=== PATIENT | female | born 1940 | race Caucasian/White ===

== ENCOUNTER 2021-07-10 08:16 | Observation (INO) ==
--- NOTE | 2021-06-10 11:31 | PAT Medication Instructions ---
Medication Instructions Date of Service June 10, 2021 Home Medications acetaminophen 500 mg tablet 1,000 mg PO Q6H PRN amlodipine 10 mg tablet 10 mg PO QAM aspirin 81 mg tablet,delayed release 81 mg PO QAM atorvastatin 40 mg tablet 40 mg PO HS clonidine HCl 0.1 mg tablet 0.1 mg PO BID dulaglutide 0.75 mg/0.5 mL subcutaneous pen injector (Trulicity) 0.75 mg SUBCUT WK hydrochlorothiazide 25 mg tablet 25 mg PO QAM losartan 100 mg tablet 100 mg PO QAM metformin 500 mg tablet 500 mg PO BID Continue as directed dulaglutide 0.75 mg/0.5 mL subcutaneous pen injector (Trulicity) 0.75 mg SUBCUT WK (do not use morning of surgery) DO NOT take the morning of surgery hydrochlorothiazide 25 mg tablet 25 mg PO QAM losartan 100 mg tablet 100 mg PO QAM metformin 500 mg tablet 500 mg PO BID Take morning of surgery With a small sip of water, OTHERWISE NOTHING TO EAT OR DRINK AFTER MIDNIGHT: acetaminophen 500 mg tablet 1,000 mg PO Q6H PRN(okay to take up to 4 hours prior to surgery if needed) amlodipine 10 mg tablet 10 mg PO QAM aspirin 81 mg tablet,delayed release 81 mg PO QAM (unless directed otherwise by surgeon) clonidine HCl 0.1 mg tablet 0.1 mg PO BID Take evening before surgery acetaminophen 500 mg tablet 1,000 mg PO Q6H PRN(if needed) atorvastatin 40 mg tablet 40 mg PO HS clonidine HCl 0.1 mg tablet 0.1 mg PO BID metformin 500 mg tablet 500 mg PO BID Other Notes If you have any questions please call us at [phone] or [phone] or [phone] or [phone]
--- NOTE | 2021-06-11 09:43 | Anesthesiology Consultation ---
Date of Service June 11, 2021 Assessment & Plan (1) Encounter for pre-operative examination: Chart Review Chart Review: Acceptable Risk for Surgery (pending preop Covid testing results ) and Patient seen in Pre Admission Testing -Discussed case with Dr. Moreno- due to age- patient is NOT a Same Day Joint candidate. Surgeon's office informed - Check BSG AM DOS Per PAT appt on 06/11/21, patient denies any recent travel or large group activities. No known Covid positive exposures or Covid related symptoms. No known Covid infection in the past 90 days. Pt is vaccinated for Covid. Preop Covid testing scheduled 07/03/21= will await results. Educated on importance of self quarantining, social distancing and wearing mask in public for the patient one week prior to surgery and after Covid testing done Teaching & Discussion Pre-Anesthesia Teaching/Discussion Notes: Instructed NPO after midnight before surgery,except medications with 15 cc of water. Medication instructions provided according to the PAT guidelines. History Surgery Operation Date: 07/07/21 11:00 Proposed Procedures p Right Total Hip Replacement - Anupam Cabral MD Height/Weight Height: 5 ft 7 in Weight: 67.1 kg Allergies Allergy/AdvReac Type Severity Reaction Status Date / Time No Known Allergies Allergy Verified 06/09/21 14:16 Medications Home Medications Medication Instructions Recorded Confirmed Last Taken acetaminophen 500 mg tablet 1,000 mg PO Q6H PRN 06/09/21 06/09/21 Unknown amlodipine 10 mg tablet 10 mg PO QAM 06/09/21 06/09/21 Unknown aspirin 81 mg tablet,delayed 81 mg PO QAM 06/09/21 06/09/21 Unknown release atorvastatin 40 mg tablet 40 mg PO HS 06/09/21 06/09/21 Unknown clonidine HCl 0.1 mg tablet 0.1 mg PO BID 06/09/21 06/09/21 Unknown dulaglutide 0.75 mg/0.5 mL 0.75 mg SUBCUT WK 06/09/21 06/09/21 Unknown subcutaneous pen injector (Trulicity) hydrochlorothiazide 25 mg tablet 25 mg PO QAM 06/09/21 06/09/21 Unknown losartan 100 mg tablet 100 mg PO QAM 06/09/21 06/09/21 Unknown metformin 500 mg tablet 500 mg PO BID 06/09/21 06/09/21 Unknown Past Medical History Medical History CKD (chronic kidney disease) Diabetes Glucose well controlled per patient Elevated cholesterol Hypertension Liver disease HX HEPATITIS 50-60 YRS AGO No current liver issues per patient Lumbar spondylosis Exercise / Class Metabolic Activity II 4-5 Yardwork/Stairs/Walk up hill (one flight of stairs- no chest pain or SOB ) Past Family History Family History Mother Diabetes Other Breast cancer Coronary heart disease Past Surgical History Surgical History H/O breast surgery H/O eye surgery H/O knee surgery H/O repair of rotator cuff H/O: hysterectomy History of appendectomy Past Anesthesia History No Hx of Anesthesia Complications and No Family Hx of Anesthesia Complications History of PONV No Hx of PONV and No Hx of Motion Sickness Social History Smoking Status: Never smoker Do You Dip or Chew Tobacco: No Hx Alcohol Use: No Hx Substance Use: No Review of Systems Patient denies chest pain, shortness of breath, dyspnea on exertion, reflux, cough, wheezing, palpitations. No hx of seizures, stroke, [place], apnea/snoring. No hx of blood clots or blood transfusions Physical Exam Vital Signs VITALS BP 147/84 P 65 TEMP 98.1 SP02 97% RESP 16 Constitutional no acute distress ENMT Mouth: no TMJ clicking Thyromental Distance: > or= 3.5 Finger Breadths (3.5) Mallampati Class: III Bottom left side permanent bridge Neck neck extension not limited Respiratory normal respiratory effort; no respiratory distress Auscultation: lungs clear to auscultation bilaterally; no wheezes Cardiovascular Rate/Rhythm: regular rate and regular rhythm Heart Sounds: no murmur Vessels: no carotid bruit Musculoskeletal Spine: no pain with cervical ROM Extremities: extremities normal to inspection Psychiatric Orientation: alert Lab Results Anesthesia Preop Results Results Anesthesia Widget: WBC 8.47 K/uL (4.8-10.8) 06/11/21 Hgb 13.8 g/dL (12.0-16.0) 06/11/21 Hct 42.0 % (37-47) 06/11/21 Plt 312 K/uL (130-400) 06/11/21 Na 139 mmol/L (136-145) 06/11/21 K 3.4 mmol/L (3.5-5.1) L 06/11/21 Cl 103 mmol/L (98-107) 06/11/21 CO2 28 mmol/L (21-32) 06/11/21 BUN 27 mg/dl (6-23) H 06/11/21 Creat 0.94 mg/dl (0.6-1.2) 06/11/21 Glucose Level 140 mg/dl (70-99(Fasting)) H 06/11/21 PT 10.1 Seconds (9.0-12.0) 06/11/21 PTT 25.2 Seconds (21.0-31.0) 06/11/21 INR 1.0 (0.9-1.1) 06/11/21 HA1c 6.8 % (4.5-5.6) H 06/11/21 Blood Type A Positive 06/11/21 Antibody Screen NEGATIVE 06/11/21 Testing Electrocardiogram Date: 06/11/21 Findings: + NSR @ (61bpm) Left anterior fascicular block. RBBB. When compared to EKG from December 07, 2013- no significant change was found per cardio. (Discussed with Dr. Bustamante- per cardio- no change since 2013- patient can proceed as scheduled) Chest X-Ray Date: 06/11/21 Findings: + NAD
--- NOTE | 2021-07-04 12:34 | History and Physical Report ---
DATE OF ADMISSION: 07/10/2021. CHIEF COMPLAINT: Right hip and knee pain. HISTORY OF PRESENT ILLNESS: The patient is an 80-year-old very healthy, active female who has become disabled by her right hip and leg pain. She has a several-year history of increasing right leg and hip pain and discomfort that has gotten markedly worse over the past year. She describes mostly groi n pain radiating down to her knee. We put shots in both her knee and her hip area, which have not he lped much. She is having more and more trouble getting around living an independent lifestyle. She would like to have this fixed. PAST MEDICAL HISTORY: Significant for: 1. Diabetes x15 years, well controlled with an A1c of 6.8. 2. Arthritis. 3. Elevated cholesterol. 4. Hypertension. 5. Unspecified liver disease. 6. Lumbar spondylosis. PAST SURGICAL HISTORY: Includes: 1. Breast surgery. 2. Eye surgery. 3. Knee surgery. 4. Rotator cuff repair. 5. Hysterectomy. ALLERGIES: None. CURRENT MEDICATIONS: 1. Topical diclofenac. 2. Tylenol. 3. Amlodipine 10 mg a day. 4. Baby aspirin once a day. 5. Atorvastatin 40 mg a day. 6. Trulicity. 7. Clonidine. 8. Hydrochlorothiazide. 9. Losartan. 10. Metformin. SOCIAL HISTORY: An 80-year-old female. She lives in [place]. She is . Does not smoke. FAMILY HISTORY: Noncontributory. REVIEW OF SYSTEMS: Significant for well-controlled diabetes. Denies any chest pain or shortness of breath. No history of DVT or PE. No known bleeding problems. PHYSICAL EXAMINATION: GENERAL: Shows a pleasant, frail, energetic appearing elderly female. HEENT: Benign. NECK: Supple. No lymphadenopathy. LUNGS: Clear to auscultation. HEART: Has a regular rate and rhythm. ABDOMEN: Soft, nontender, nondistended. EXTREMITIES: Grossly neurovascularly intact except as follows. Examination of the right hip and leg revealed the patient walks with a significantly antalgic gait. She limps on the right side. Leg lengths appeared clinically equal. She has pain and stiffness with any type of hip motion. Negative straight leg raise. Mild tenderness over the trochanteric bursa. She can internally rotate to about neutral at best. Examination of the right knee reveals a bony hypertrophy globally. A little bit of tibial femoral rao bluxation. Range of motion is 10-105 degrees. No instability. X-RAYS: X-rays of the right hip show advanced hip arthritis. She has got concentric loss of joint s pace. Lateral osteophyte formation. X-rays of the right knee, which show right knee tricompartment DJD. She has got disease in all 3 com partments. ASSESSMENT: An 80-year-old female with advanced right hip along with right knee degenerative joint d isease. It appears that the hip has been more disabling from a functional pain standpoint. She has failed conservative treatment. Unfortunately, she has got significant knee arthritis as well. PLAN: We talked about treatment options. She would like to proceed with right total hip replacement . Risks and benefits of this procedure were explained to the patient include but not limited to DVT, PE, , infection, neurological injury, vascular injury, bleeding problem, pain, limited range of motion, stiffness, failure to relieve her symptoms, incomplete relief of symptoms, need for further surgery in the future, fracture, leg length inequality, nerve palsy, etc. The patient understands an d desires to proceed. Informed consent was obtained. This is not going to necessarily address her knee pain, but it appears that her hips are the major co ntributing factor at this point. She certainly may need something done with her knee in the future. She knows to hold her metformin on the morning of surgery. She is planning to be discharged to home eventually, but planning on staying overnight and using [facility]. We will see h ow she gets around postop. She may need a rehab stay. Job ID: [id number]
[~2021-07-10 08:16] MED LIST: ACETAMINOPHEN 500 MG TAB PO SCH; BUPIVACAINE 0.5 % 5 MG/1 ML PF 10ML VIAL ONE; FAMOTIDINE 20 MG TAB PO SCH; GABAPENTIN 300 MG CAP PO SCH; LR 500ML BOLUS, THEN 15ML/HR IV SCH; LR 60ML/HR IV SCH; TRANEXAMIC ACID 1,000 MG **IV Pre-op IV SCH; ceFAZolin 2000MG 2,000 MG/15 ML SYR IV SCH
--- NOTE | 2021-07-10 09:19 | History & Physical Bridge Note ---
Date of Service July 10, 2021 History & Physical Bridge Note I have examined the patient, reviewed the History & Physical and in the interval since the performance of the History & Physical I have noted the following changes of clinical significance: no changes noted
[2021-07-10] MEDS ORDERED: LABETALOL HCL IV 5 MG/ML 20ML IV PRN (10:04)
[2021-07-10] MEDS ORDERED: ONDANSETRON INJ 2 MG/ML 2 ML VIAL IV PRN ×2 (10:04→15:27)
[2021-07-10] MEDS ORDERED: HYDROmorphone INJ 1 MG/ML SYRINGE IV PRN (10:04)
[2021-07-10] MEDS ORDERED: fentaNYL citrate 100 MCG/2 ML VIAL IV PRN (10:04)
[2021-07-10] MEDS ORDERED: PHENYLEPHRINE 100MCG/ML 5ML SYR IV PRN (10:04)
[2021-07-10] MEDS ORDERED: ATROPINE SULFATE 0.1 MG/ML 10ML SYR IV PRN (10:04)
[2021-07-10] MEDS ORDERED: ePHEDrine sulfate 50 MG/ML AMP IV PRN (10:04)
[2021-07-10] MEDS ORDERED: fentaNYL citrate 100 MCG/2 ML VIAL ONE (10:26)
[2021-07-10] MEDS ORDERED: MIDAZOLAM HCL 1 MG/ML 2ML VIAL ONE (10:26)
[2021-07-10] MEDS ORDERED: EPINEPHrine INJ 1 MG/ML AMP ONE (11:55)
[2021-07-10] MEDS ORDERED: BUPIVACAINE 0.5 % 5 MG/1 ML MPF 30ML VIAL ONE (11:55)
[2021-07-10] MEDS ORDERED: PROPOFOL IV EMULSION 10 MG/ML 20 ML VIAL IV ONE (13:12)
[2021-07-10] MEDS ORDERED: ePHEDrine sulfate 50 MG/ML AMP ONE (13:12)
--- NOTE | 2021-07-10 14:36 | Anesthesiology Progress Note ---
Date of Service July 10, 2021 Anesthesia Post Procedure Vital Signs Vital Signs: Temp Pulse Pulse Resp BP Pulse Ox 07/10/21 14:25 72 17 167/70 H 100 07/10/21 14:18 36 C L 73 22 153/76 H 98 07/10/21 08:51 36.6 C 63 20 146/70 H 97 Transfer of Care Handoff Completed per policy Notes Mental Status: alert / awake / arousable Patient Amnestic to Procedure: Yes Nausea / Vomiting: adequately controlled Pain: adequately controlled Airway Patency, RR, SpO2: stable & adequate BP & HR: stable & adequate Hydration State: stable & adequate Neuraxial Anesthesia: was administered and sensory block is resolving Anesthetic Complications: no major complications apparent and Pt Satisfied with anesthetic care Notes: The patient is awake and comfortable. She is moving her legs.
--- NOTE | 2021-07-10 14:42 | Operative Report ---
PG Post Operative Report Pre & Post Diagnosis Operation Date: 07/10/21 10:40 Pre-Op Diagnosis: Right Hip Advanced Degenerative Joint Disease Post-Op Diagnosis: Right Hip Advanced Degenerative Joint Disease I identified the patient and participated in the time-out.: Yes Procedure Operation Date: 07/10/21 10:40 Actual Procedures p Right Total Hip Arthroplasty--Uncemented(Right) - Anupam Cabral MD Surgeon Anupam Cabral MD Information Assurance Analyst Lj Grewal PA-C Estimated Blood Loss 200 Findings Consistent with Post-Op Diagnosis Operative findings were advanced right hip DJD. She did have some grade 4 changes of the femoral head there is a very sclerotic acetabulum. Very strong bone density for age. Small hip joint effusion. Fluids 1400 cc Specimens Right femoral head sent for pathology Anesthesia Type Spinal MAC Complications none Disposition Accompanied Patient To Recovery: No Indications Patient is an 80-year-old female who is a long history of multiple joint problems. Over the years she developed increasing arthritic changes particularly in the right knee and the right hip joint. She became more debilitated by her disease. She has difficulty living a independent lifestyle. She had both advanced hip as well as knee arthritis. We elect to proceed with hip arthroplasty first in hopes this may help her right knee pain as well. Was also felt the majority of her limiting symptoms were coming from her hip joint. Description of Procedure Operative implants consisted of: 1. Biomet G7 size 52 mm acetabular shell. 2. 6.5 cancellous acetabular screws 135 mm length 130 mm length. 3. Sebastian hole locomotive crane operator helper. 4. Highly cross-linked polyethylene liner with a 52 mm outer diameter, 36 mm inner diameter with a dangelo placed inferior and posterior. 5. DePuy Corail size 10 short neck 125 degree angle femoral stem. 6. +5/36 mm ceramic articular ball. The patient was taken the operating, identified, and placed on the operating table supine position protectors were properly padded. IV antibiotics tried by anesthesia team. A spinal anesthetic had been implemented holding area. We attempted to place a Lucas catheter but were unable to do so due to her a very small urethra. We elected to hold off on this and need placement postoperatively as needed. The patient was then placed in the left lateral decubitus position. An axillary roll was placed. A Stulberg hip positioner was used for positioning. The right hip and leg were then prepped and draped in usual sterile fashion. A posterior lateral approach to the right hip was then performed to a curvilinear incision centered over the greater trochanter. Sharp dissection carried through subcutaneous this down over the IT band gluteal fascia. The IT band gluteal fascia were incised longitudinally in line with skin incision. The underlying greater bursa was excised. The piriformis and external rotators were tagged and taken off the posterior aspect hip joint capsule. Great care was taken throughout the procedure to protect the sciatic nerve at all times. Posterior capsulotomy was then performed in the large flap for later repair. Hip was internally rotated and dislocated. Femoral neck osteotomy cut was made with Final Cut about 14 mm above the lesser trochanter. Femoral head was removed and sent for pathology. The femur was retracted anteriorly. Attention drawn the acetabulum. The acetabular labrum was excised. The pulvinar fat was excised. Sequential reaming the acetabular was then performed beginning with size 43 and progressing up to 51. I did reamed a little bit with a 52 reamer and then placed a 52 mm cup in about 40 degrees lateral opening and 20 degrees of anteversion. It was fixed with two 6.5 cancellous acetabular screws. Trial liner was placed. Attention drawn the femur. The proximal femur was entered with a cookie-cutter followed by canal finder. Her cancellous bone density was excellent so we elected to go with an uncemented stem. I then broached beginning with size 8 and progressing up to a 10. We got good fit of the tendon. I then trialed the hip. The short neck seemed to fit most appropriate as far as leg lengths and soft tissue tension. The hip was fully stable in extension and external rotation flexion to 90 degrees internal rotation over 50 degrees. I did elect to place a dangelo inferior and posterior to maximize her stability. We elect to place these implants. All trial implants were removed. An apex hole locomotive crane operator helper was placed but highly cross-linked polyethylene liner with a dangelo placed inferior and posterior was impacted in position. A DePuy size 10 short neck 125 degree angle femoral stem was impacted in position. A +5/36 mm ceramic articular ball was placed. Hip was low again and once again found to be stable. Attention drawn toward closing. The wounds irrigated scope sounds a pulsatile lavage solution. I did inject locally with about 40 cc of half percent Marcaine with epinephrine. Posterior capsule and external rotators were then repaired through drill holes in the posterior trochanter with #2 Tycron suture. The IT band gluteal fascia then closed #1 PDS suture running fashion. The subcutaneous tissue then closed with 2 layers the deep layer #1 Vicryl suture and subcutaneous tissue with 2 Dexon suture in a buried interrupted fashion for skin was closed skin simon. Leg was then cleaned and dried a sterile dressing both Xeroform, 4 fours, sterile ABD pad, foam tape were applied. Patient then transferred to the recovery room in stable condition. Patient tolerated the procedure well and there were no complications. Damon Grewal, my physician assistant account executive, was present for the entire procedure. His assistance was required for proper patient positioning, prepping and draping, surgical exposure, retraction, placement of the implants, perform the technical details of the operation, closure of the wound, placement of sterile bandage. I attest to the content of the Intraoperative Record and any orders documented therein. Any exceptions are noted below.
--- NOTE | 2021-07-10 15:13 | XRay Report ---
XR hip 1V RT w pelvis HISTORY: 80 years-old Female IN PACU - A/P PELVIS and LATERAL HIP right hip total joint arthroplast y COMPARISON: Hip radiographs 06/05/2021 TECHNIQUE: AP view of the pelvis with crosstable lateral view of the right hip FINDINGS: Moderate right hip osteoarthritis redemonstrated. Right hip total joint arthroplasty with overlying l ateral skin simon and expected postoperative soft tissue swelling with deep tissue air. No acute fr acture, alignment or unexpected opaque foreign body. IMPRESSION: Right hip total joint arthroplasty with expected postoperative changes. ACT 112: Negative or not required by law. The above report was generated using voice recognition software. It may contain grammatical, syntax o r spelling errors. Electronically signed by: Slick Doss M.D. 07/10/2021 3:12 PM
[2021-07-10] MEDS ORDERED: traMADol HCL 50 MG TABLET PO PRN (15:27)
[2021-07-10] MEDS ORDERED: MAGNESIUM HYDROXIDE SUSP 30 ML UDC PO PRN (15:27)
[2021-07-10] MEDS ORDERED: METOCLOPRAMIDE HCL INJ 5 MG/ML 2 ML VIAL IV PRN (15:27)
[2021-07-10] MEDS ORDERED: HYDROmorphone INJ 0.5 MG/0.5 ML SYR IV PRN (15:27)
[2021-07-10] MEDS ORDERED: NALOXONE HCL 0.4 MG/1 ML VIAL/CARP IV PRN (15:27)
[2021-07-10] MEDS ORDERED: bisacodyL 10 MG SUPP PR PRN (15:27)
[2021-07-10] MEDS ORDERED: ALUMINUM/MAGNESIUM SUSP 30 ML UDC PO PRN (15:27)
[2021-07-10] MEDS ORDERED: PHARMACY GLYCEMIC MGMT CONSULT PRN (15:27)
[2021-07-10] MEDS ORDERED: GLUCOSE 10 TABS/TUBE PO PRN (15:45)
[2021-07-10] MEDS ORDERED: CARBOHYDRATES FOR HYPOGLYCEMIA PO PRN (15:45)
[2021-07-10] MEDS ORDERED: DEXTROSE 50% 50 ML SYRINGE IV PRN (15:45)
[2021-07-10] MEDS ORDERED: GLUCAGON FOR INJ 1 MG VIAL IM PRN (15:45)
[2021-07-10] MEDS ORDERED: GLUCOSE 40% GEL 15 GM TUBE PO PRN (15:45)
--- NOTE | 2021-07-10 16:05 | Pharmacy Report ---
Pharmacy Glycemic Short Note 2 - Date of Service July 10, 2021 - Glycemic Short BSG Results (Last 24 hours): 07/10/21 14:19 POC Glucose 213 H OUTPATIENT ANTIDIABETIC REGIMEN: * Trulicity 0.75 mg SC weekly (Sundays) * Metformin 500 mg PO BIDM * HbA1c: 6.8% (06/11/21) ASSESSMENT: * SP is a 80 year old female POD #0 s/p right total hip arthroplasty * No intraoperative steroids given, ordered dexamethasone 10 mg IV x 1 tomorrow morning * Postoperative BSG of 213 mg/dL * HbA1c well-controlled on metformin and Trulicity PLAN FOR INPATIENT GLYCEMIC CONTROL: * Hold outpatient oral diabetes medications * Basal insulin * Lantus 10 units SC x 1 today * Reassess in AM with steroids * Bolus insulin * NovoLog per scale ACHS or Q6hrs while NPO * Goal Range: Low 110 mg/dL - High 140 mg/dL * Correction Factor: 30 mg/dL/unit * Nutritional / Prandial insulin per carb ratio of 1 unit per 10 grams CHO consumed * 0000 check with same parameters
[2021-07-10] MEDS: SODIUM CHLORIDE 0.9% 1000ML 1,000 ML IV SCH (16:06)
[2021-07-10] MEDS: KETOROLAC TROMETHAMINE 15 MG/ML VIAL IV SCH ×2 (16:20→21:53)
[2021-07-10] MEDS: ASCORBIC ACID 500 MG TAB PO SCH (16:20)
[2021-07-10] MEDS ORDERED: INSULIN GLARGINE SOLOSTAR 100 UNITS/ML 3 ML PEN SC ONE (17:45)
[2021-07-10] MEDS: INSULIN ASPART PER UNIT SC SCH ×2 (17:56→21:00)
[2021-07-10] MEDS: ceFAZolin 1000MG 1,000 MG/7.5 ML SYR IV SCH (20:34)
[2021-07-10] MEDS: DOCUSATE SODIUM 100 MG CAP PO SCH (20:44)
[2021-07-10] MEDS: SENNA 8.6 MG TAB PO SCH (20:44)
[2021-07-10] MEDS ORDERED: TRANEXAMIC ACID / 0.7% NACL 1,000 MG/100 ML BAG IV SCH (20:45)
[2021-07-10] MEDS: ATORVASTATIN 40 MG TAB PO SCH (20:45)
[2021-07-10] MEDS: cloNIDine HCL 0.1 MG TAB PO SCH (20:45)
[2021-07-10] MEDS: ASPIRIN 81 MG ECTAB PO SCH (20:45)
[2021-07-10] MEDS: ACETAMINOPHEN 500 MG TAB PO SCH (21:53)
[2021-07-11] MEDS ORDERED: INSULIN ASPART PER UNIT SC SCH
[2021-07-11] MEDS: SODIUM CHLORIDE 0.9% 1000ML 1,000 ML IV SCH (02:14)
[2021-07-11] MEDS: ceFAZolin 1000MG 1,000 MG/7.5 ML SYR IV SCH (04:36)
[2021-07-11] MEDS: KETOROLAC TROMETHAMINE 15 MG/ML VIAL IV SCH ×4 (04:36→22:14)
[2021-07-11 05:35] LABS: Basophils # (auto) 0.02 K/uL (0-0.2); Basophils % (auto) 0.2 %; Eosinophils # (auto) 0.08 K/uL (0-0.5); Eosinophils % (auto) 0.7 %; Hematocrit (blood only) 35.9 % (37-47); Hemoglobin 11.7 g/dL (12.0-16.0); Immature Granulocytes # (auto) 0.04 K/uL (0.00-0.02); Immature Granulocytes % (auto) 0.4 %; Lymphocytes # (auto) 3.08 K/uL (1.2-3.4); Lymphocytes % (auto) 27.8 %; Mean Corpuscular Hemoglobin 31.6 pg (25-34); Mean Corpuscular Hgb Conc 32.6 g/dL (32-36); Mean Platelet Volume 10.1 fL (7.4-10.4); Monocytes % (auto) 8.1 %; Neutrophils # (auto) 6.95 K/uL (1.4-6.5); Neutrophils % (auto) 62.8 %; Platelet Count 269 K/uL (130-400); RDW Coefficient of Variation 13.5 % (11.5-14.5); RDW Standard Deviation 48.1 fL (36.4-46.3); White Blood Count 11.07 K/uL (4.8-10.8)
[2021-07-11 05:52] LABS: BUN Creatinine Ratio 24.2 (10-20); Calcium 8.7 mg/dl (8.5-10.1); Creatinine Clr Calc Pharmacy 45.9 ml/min; Est GFR (African American) 65.6 ml/min; Est GFR (Non-African American) 56.6 ml/min; Potassium 3.4 mmol/L (3.5-5.1)
[2021-07-11] MEDS: ACETAMINOPHEN 500 MG TAB PO SCH ×3 (06:00→22:13)
[2021-07-11] MEDS ORDERED: dexAMETHasone 10 MG in SYRINGE 0 ML IV SCH (08:00)
[2021-07-11] MEDS ORDERED: POTASSIUM CHLORIDE CRTAB 20 MEQ TABCR PO ONE (08:37)
[2021-07-11] MEDS: INSULIN ASPART PER UNIT SC SCH ×4 (08:44→20:59)
[2021-07-11] MEDS: ASPIRIN 81 MG ECTAB PO SCH ×2 (08:45→21:00)
[2021-07-11] MEDS: MULTIVITAMIN TAB PO SCH (08:45)
[2021-07-11] MEDS: DOCUSATE SODIUM 100 MG CAP PO SCH ×2 (08:45→21:00)
[2021-07-11] MEDS: ASCORBIC ACID 500 MG TAB PO SCH ×2 (08:46→17:56)
--- NOTE | 2021-07-11 08:47 | Progress Notes ---
DATE OF SERVICE: 07/11/2021. SUBJECTIVE: An 80-year-old female postoperative day 1 from a right uncemented total hip arthroplasty . She is doing well. Denies any significant pain. No other complaints. No chest pain or shortness of breath. Not feeling dizzy or lightheaded. OBJECTIVE: VITAL SIGNS: Temperature 37.0. Vital signs are stable. GENERAL: Shows a pleasant, elderly female. She is sitting up in bed and eating breakfast and looks comfortable. EXTREMITIES: Examination of the right hip reveal the leg lengths to be equal. Dressing is clean, dr y and intact. Thigh is soft and supple. She is neurologically intact. LABORATORY DATA: Hemoglobin 11.7. Hematocrit 35.9. Electrolytes are stable. Potassium is just sli ghtly low at 3.4. ASSESSMENT: An 80-year-old female postoperative day 1 from a right total hip replacement, doing quit e well. Pain is very well controlled. Hip is located. She is neurologically intact. PLAN: 1. DVT prophylaxis includes thigh-high TEDs, SCDs, and aspirin twice a day. 2. PT, OT, weightbear as tolerated. I will see how she does in therapy today. She is hoping to go home. She is living by herself, but has a lot of family around. She does okay in therapy, we may se nd her home with home health and her family's assistance. 3. Pain control, doing well with current pain regimen. Avoid narcotics to avoid any confusion issue s. 4. Disposition. We will see how therapy goes today. Hopeful discharge tomorrow, doing okay. She i s doing well, we may get her home with her family's assistance and home health. Job ID: [id number]
[2021-07-11] MEDS: amLODIPine BESYLATE 5 MG TAB PO SCH (08:50)
[2021-07-11] MEDS: hydroCHLOROthiazide 25 MG TAB PO SCH (08:51)
[2021-07-11] MEDS: cloNIDine HCL 0.1 MG TAB PO SCH ×2 (08:51→21:01)
[2021-07-11] MEDS: LOSARTAN POTASSIUM 50 MG TAB PO SCH (08:51)
[2021-07-11] MEDS ORDERED: INSULIN GLARGINE SOLOSTAR 100 UNITS/ML 3 ML PEN SC ONE (09:00)
--- NOTE | 2021-07-11 14:34 | Pharmacy Report ---
Pharmacy Glycemic Short Note 2 - Date of Service July 11, 2021 - Glycemic Short BSG Results (Last 24 hours): 07/10/21 07/10/21 07/10/21 16:57 20:41 23:45 Glucose POC Glucose 187 H 128 H 167 H 07/11/21 07/11/21 07/11/21 05:07 07:48 11:56 Glucose 164 H POC Glucose 165 H 147 H OUTPATIENT ANTIDIABETIC REGIMEN: * Trulicity 0.75 mg SC weekly (Sundays) * Metformin 500 mg PO BIDM * HbA1c: 6.8% (06/11/21) ASSESSMENT: 07/11/21: * Patient received total 16 units of insulin yesterday; 10 units basal and 6 units bolus. * BSGs yesterday were [phone] mg/dl. * Fasting BSG today was 164 mg/dl. Dexamethasone 10 mg IV x1 dose ordered today. Lantus 10 units SQ given with IV Dex to prevent steroid induced hyperglycemia. * Also patient's home dose of Metformin oral BID resumed with dinner today. * Novolog parameters tightened this AM but loosened with dinner Background 07/10/21: * SP is a 80 year old female POD #0 s/p right total hip arthroplasty * No intraoperative steroids given, ordered dexamethasone 10 mg IV x 1 tomorrow morning * Postoperative BSG of 213 mg/dL * HbA1c well-controlled on metformin and Trulicity PLAN FOR INPATIENT GLYCEMIC CONTROL: * Hold outpatient oral diabetes medications * Basal insulin * Lantus 10 units SC x 1 today with IV steroid * Reassess in AM * Bolus insulin: CF and CR loosened * NovoLog per scale ACHS or Q6hrs while NPO * Goal Range: Low 110 mg/dL - High 140 mg/dL * Correction Factor: 35 mg/dL/unit * Nutritional / Prandial insulin per carb ratio of 1 unit per 15 grams CHO consumed
[2021-07-11] MEDS: metFORMIN HCL ER 500 MG TABCR PO SCH (17:55)
[2021-07-11] MEDS ORDERED: POTASSIUM CHLORIDE CRTAB 20 MEQ TABCR PO SCH (18:00)
[2021-07-11] MEDS: ATORVASTATIN 40 MG TAB PO SCH (21:00)
[2021-07-11] MEDS: SENNA 8.6 MG TAB PO SCH (21:00)
[2021-07-12] MEDS: KETOROLAC TROMETHAMINE 15 MG/ML VIAL IV SCH ×2 (04:00→10:19)
[2021-07-12] MEDS: ACETAMINOPHEN 500 MG TAB PO SCH ×3 (05:46→21:55)
[2021-07-12] MEDS: LOSARTAN POTASSIUM 50 MG TAB PO SCH (08:29)
[2021-07-12] MEDS: DOCUSATE SODIUM 100 MG CAP PO SCH ×2 (08:29→21:18)
[2021-07-12] MEDS: amLODIPine BESYLATE 5 MG TAB PO SCH (08:29)
[2021-07-12] MEDS: MULTIVITAMIN TAB PO SCH (08:29)
[2021-07-12] MEDS: hydroCHLOROthiazide 25 MG TAB PO SCH (08:29)
[2021-07-12] MEDS: ASPIRIN 81 MG ECTAB PO SCH ×2 (08:29→21:17)
[2021-07-12] MEDS: cloNIDine HCL 0.1 MG TAB PO SCH ×2 (08:30→21:17)
[2021-07-12] MEDS: ASCORBIC ACID 500 MG TAB PO SCH ×2 (08:30→17:51)
[2021-07-12] MEDS: metFORMIN HCL ER 500 MG TABCR PO SCH ×2 (08:30→17:51)
[2021-07-12] MEDS: INSULIN ASPART PER UNIT SC SCH ×4 (08:35→21:00)
[2021-07-12] MEDS ORDERED: INSULIN GLARGINE SOLOSTAR 100 UNITS/ML 3 ML PEN SC ONE (09:00)
--- NOTE | 2021-07-12 09:31 | Progress Notes ---
DATE OF SERVICE: 07/12/2021. SUBJECTIVE: An 80-year-old female postoperative day 2 from a right total hip replacement. She is do ing pretty well. Feeling just a little bit nauseated this morning. No chest pain or shortness of br eath. Once again, denies any significant hip or leg pain. OBJECTIVE: VITAL SIGNS: Temperature 36.9. Vital signs are stable. GENERAL: Shows a pleasant, elderly female. She is awake, alert and oriented, sitting up in bed, loo ks pretty comfortable. EXTREMITIES: Examination of the right hip reveals the incision to be clean, dry and intact. Very mi ld swelling. No significant drainage. Leg lengths were equal. She is neurologically intact. ASSESSMENT: An 80-year-old female postoperative day 2 from a right hip replacement, doing pretty wel l. She has now decided she wants to go to rehabilitation. Her pain is controlled. She just does no t have much help at home. Her is not available and otherwise by herself. PLAN: 1. DVT prophylaxis includes thigh-high TEDs, SCDs, and aspirin twice a day. 2. PT, OT, weightbear as tolerated. Right total hip protocol. 3. Pain control, doing well with current pain regimen. Really not having much pain. 4. Medical management. No new medical issues. 5. Disposition: We are going to start looking into options. Her is actually going to [facility]. That would be ideal versus other location over in the ____ [facility] area. Job ID: [id number]
[2021-07-12] MEDS: ATORVASTATIN 40 MG TAB PO SCH (21:17)
[2021-07-12] MEDS: SENNA 8.6 MG TAB PO SCH (21:18)
[2021-07-13] MEDS: ACETAMINOPHEN 500 MG TAB PO SCH ×3 (05:55→21:20)
--- NOTE | 2021-07-13 08:37 | Progress Notes ---
DATE OF SERVICE: 07/13/2021. SUBJECTIVE: An 80-year-old female now postop day 3 from a right total hip replacement. She once aga in has no pain. She had some abdominal pain yesterday, which seems to be improved. No other complai nts. Waiting for placement. OBJECTIVE: VITAL SIGNS: Temperature 36.6. Vital signs are stable. GENERAL: Shows a pleasant, elderly female, sitting up in bed, looks comfortable. EXTREMITIES: Examination of the right hip reveals the dressing to be clean, dry and intact. Leg ferdinand gths were equal. She is neurologically intact. ASSESSMENT: An 80-year-old female postoperative day 3 from right total hip replacement, doing well. Pain is controlled. Hip is located. She is hoping to just go to a long term facility as she lives by herself. PLAN: 1. DVT prophylaxis includes thigh-high TEDs, SCDs, and aspirin twice a day. 2. PT, OT, weightbear as tolerated. Right total hip protocol. 3. Pain control, doing okay with current pain regimen. Really not having much pain. 4. Disposition: She is orthopedically okay for discharge. We are just waiting for placement. Job ID: [id number]
[2021-07-13] MEDS: INSULIN ASPART PER UNIT SC SCH ×4 (08:38→21:19)
[2021-07-13] MEDS: cloNIDine HCL 0.1 MG TAB PO SCH ×2 (08:42→20:19)
[2021-07-13] MEDS: hydroCHLOROthiazide 25 MG TAB PO SCH (08:42)
[2021-07-13] MEDS: LOSARTAN POTASSIUM 50 MG TAB PO SCH (08:43)
[2021-07-13] MEDS: ASPIRIN 81 MG ECTAB PO SCH ×2 (08:43→20:19)
[2021-07-13] MEDS: MULTIVITAMIN TAB PO SCH (08:43)
[2021-07-13] MEDS: amLODIPine BESYLATE 5 MG TAB PO SCH (08:44)
[2021-07-13] MEDS: ASCORBIC ACID 500 MG TAB PO SCH ×2 (08:44→17:54)
[2021-07-13] MEDS: metFORMIN HCL ER 500 MG TABCR PO SCH ×2 (08:44→17:54)
[2021-07-13] MEDS: DOCUSATE SODIUM 100 MG CAP PO SCH ×2 (08:45→20:20)
[2021-07-13] MEDS: INSULIN GLARGINE SOLOSTAR 100 UNITS/ML 3 ML PEN SC SCH (08:50)
[2021-07-13] MEDS ORDERED: INSULIN GLARGINE SOLOSTAR 100 UNITS/ML 3 ML PEN SC SCH (09:00)
[2021-07-13] MEDS: ATORVASTATIN 40 MG TAB PO SCH (20:19)
[2021-07-13] MEDS: SENNA 8.6 MG TAB PO SCH (20:20)
[2021-07-14] MEDS: ACETAMINOPHEN 500 MG TAB PO SCH ×2 (05:59→13:24)
[2021-07-14] MEDS: cloNIDine HCL 0.1 MG TAB PO SCH (08:32)
[2021-07-14] MEDS: hydroCHLOROthiazide 25 MG TAB PO SCH (08:33)
[2021-07-14] MEDS: ASPIRIN 81 MG ECTAB PO SCH (08:33)
[2021-07-14] MEDS: MULTIVITAMIN TAB PO SCH (08:33)
[2021-07-14] MEDS: ASCORBIC ACID 500 MG TAB PO SCH (08:33)
[2021-07-14] MEDS: LOSARTAN POTASSIUM 50 MG TAB PO SCH (08:34)
[2021-07-14] MEDS: amLODIPine BESYLATE 5 MG TAB PO SCH (08:34)
[2021-07-14] MEDS: metFORMIN HCL ER 500 MG TABCR PO SCH (08:34)
[2021-07-14] MEDS: DOCUSATE SODIUM 100 MG CAP PO SCH (08:35)
[2021-07-14] MEDS: INSULIN GLARGINE SOLOSTAR 100 UNITS/ML 3 ML PEN SC SCH (08:36)
[2021-07-14] MEDS: INSULIN ASPART PER UNIT SC SCH ×2 (08:37→12:42)
--- NOTE | 2021-07-14 11:49 | Progress Notes ---
DATE OF SERVICE: 07/14/2021. SUBJECTIVE: An 80-year-old female now postop day 4 from right total hip replacement. She is doing p retty well. Once again, denies much in the way of pain. Just a little bit of soreness in her buttoc k area. No chest pain or shortness of breath. Her therapy has gone well. OBJECTIVE: VITAL SIGNS: Temperature 37.0. Vital signs are stable. PHYSICAL EXAMINATION: GENERAL: Shows a pleasant, elderly female. She is lying in bed, looks completely comfortable. EXTREMITIES: Examination of the right hip reveals the incision to be clean, dry and intact. There i s no drainage. Mild swelling. She can dorsiflex and plantarflex her foot appropriately. She is nicole rologically intact. ASSESSMENT: An 80-year-old female postoperative day 4 from right uncemented total hip arthroplasty, doing quite well. She has never had much pain. She is neurologically intact. The pain is controlle d. PLAN: 1. DVT prophylaxis includes thigh-high TEDs, SCDs, and aspirin twice a day. 2. PT, OT, weightbear as tolerated, right total hip protocol. 3. Pain control, doing well with current pain regimen. Really not having much pain. 4. Disposition: She is just awaiting discharge. She has been accepted to [facility] and planning on transferring there today. I will be seeing her back 2 weeks postop. Job ID: [id number]
--- NOTE | 2021-07-16 06:42 | Discharge Summary ---
Date of Service July 16, 2021 Discharge Data Procedures Performed Operation Date: 07/10/21 10:40 Actual Procedures p Right Total Hip Arthroplasty--Uncemented(Right) - Anupam Cabral MD Hospital Course (1) S/P total right hip arthroplasty: Serena is a 80 year old patient admitted on 07/10/21 and underwent total hip arthroplasty. She tolerated the procedure well and there were no complications. Transferred to the PACU post op and later to the orthopedic floor for further care. She was given ancef for antibiotic prophylaxis. She was also given FREDA stockings, SCDs, and aspirin for DVT prophylaxis. Hemoglobin, hematocrit, and vital signs were monitored during her hospital stay and remained stable. Did not require any blood transfusions. There were no complications during her hospital stay. By post op day #4 the patient was tolerating a diabetic diet, pain was reasonably controlled with oral pain medicine, and she was participating in physical therapy. On post op day #4 the patient was discharged home and set up with home health care. She was given printed discharge instructions including prescriptions for extra strength tylenol, aspirin, and tramadol. Continue physical therapy, weight bearing as tolerated. Continue hip precautions. Continue FREDA stockings. Follow up approximately 2 weeks post op or sooner if there are problems or concerns. Coding Level of Care Code None Diagnoses S/P total right hip arthroplasty Z96.641
== END 2021-07-14 16:16 ==
LOC: 3E 08:16 → ASU 08:16
DX: M25.751 Osteophyte, right hip; E11.9 Type 2 diabetes mellitus without complications; N18.9 Chronic kidney disease, unspecified; E78.00 Pure hypercholesterolemia, unspecified; Z79.82 Long term (current) use of aspirin; Z79.899 Other long term (current) drug therapy; I12.9 Hypertensive chronic kidney disease with stage 1 through stage 4 chronic kidney disease, or unspecified chronic kidney disease; M16.11 Unilateral primary osteoarthritis, right hip; Z79.84 Long term (current) use of oral hypoglycemic drugs

== ENCOUNTER 2021-12-11 09:46 | Observation (INO) ==
--- NOTE | 2021-11-06 14:59 | PAT Medication Instructions ---
Medication Instructions Date of Service November 06, 2021 Home Medications Medication Instructions Recorded aspirin 81 mg tablet,delayed 81 mg PO BID #90 tabs 07/08/21 release (Adult Aspirin Regimen) amoxicillin 500 mg tablet 2,000 mg PO ONCE #4 tabs 11/05/21 acetaminophen 500 mg tablet 1,000 mg PO Q6H PRN Pain amlodipine 10 mg tablet 10 mg PO QAM atorvastatin 40 mg tablet 40 mg PO HS clonidine HCl 0.1 mg tablet 0.1 mg PO BID dulaglutide 0.75 mg/0.5 mL subcutaneous pen injector (Trulicity) 0.75 mg subcut WK hydrochlorothiazide 25 mg tablet 25 mg PO QAM losartan 100 mg tablet 100 mg PO QAM metformin 500 mg tablet 500 mg PO BID aspirin 81 mg tablet,delayed release (Adult Aspirin Regimen) 81 mg PO BID amoxicillin 500 mg tablet 2,000 mg PO ONCE psyllium husk 3.4 gram/5.4 gram oral powder (Metamucil) 1 tbsp PO QAM Continue as directed amoxicillin 500 mg tablet 2,000 mg PO ONCE (Prior to procedures) dulaglutide 0.75 mg/0.5 mL subcutaneous pen injector (Trulicity) 0.75 mg subcut WK (but do not take morning of surgery) ASK your prescriber and surgeon aspirin 81 mg tablet,delayed release (Adult Aspirin Regimen) 81 mg PO BID DO NOT take the morning of surgery hydrochlorothiazide 25 mg tablet 25 mg PO QAM losartan 100 mg tablet 100 mg PO QAM metformin 500 mg tablet 500 mg PO BID psyllium husk 3.4 gram/5.4 gram oral powder (Metamucil) 1 tbsp PO QAM Take morning of surgery With a small sip of water, OTHERWISE NOTHING TO EAT OR DRINK AFTER MIDNIGHT: acetaminophen 500 mg tablet 1,000 mg PO Q6H PRN Pain (if needed) amlodipine 10 mg tablet 10 mg PO QAM clonidine HCl 0.1 mg tablet 0.1 mg PO BID Take evening before surgery acetaminophen 500 mg tablet 1,000 mg PO Q6H PRN Pain (if needed) atorvastatin 40 mg tablet 40 mg PO HS clonidine HCl 0.1 mg tablet 0.1 mg PO BID metformin 500 mg tablet 500 mg PO BID Other Notes If you have any questions please call us at [phone] or [phone] or [phone] or [phone]
--- NOTE | 2021-11-11 11:16 | Anesthesiology Consultation ---
Date of Service November 11, 2021 Assessment & Plan (1) Encounter for pre-operative examination: - Hypokalemia: Potassium 3.1 on preop labs. Pt does have hx of mild hypokalemia per chart review. Pt taking HCTZ. Not on potassium supplementation. Note written to PCP- awaiting response (Brittani Mirza PAC; ANDREW Chirinos). - Check BSG AM DOS - COVID screening: Per assessment on 11/11: No known COVID-19 positive contacts or current COVID-19 related symptoms. Travel screen negative. Patient vaccinated. Surgeon arranging preop COVID testing. Awaiting results. - S/P right ALVARO (07/10/21): SAB at L3/4 x2 attempts (see anesthesia record for further details). No issues noted per post-op anesthesia progress note. Chart Review Chart Review: Patient seen in Pre Admission Testing Teaching & Discussion Pre-Anesthesia Teaching/Discussion Notes: Instructed NPO after midnight before surgery,except medications with 15 cc of water. Medication instructions provided according to the PAT guidelines. History Surgery Operation Date: 12/11/21 07:00 Proposed Procedures p Right Total Knee Arthroplasty - Anupam Cabral MD Height/Weight Height: 5 ft 7 in Weight: 61 kg Allergies Allergy/AdvReac Type Severity Reaction Status Date / Time No Known Allergies Allergy Verified 11/06/21 13:08 Medications Home Medications Medication Instructions Recorded Confirmed Last Taken acetaminophen 500 mg tablet 1,000 mg PO Q6H PRN Pain 06/09/21 11/06/21 07/09/21 17:00 amlodipine 10 mg tablet 10 mg PO QAM 06/09/21 11/06/21 07/10/21 07:00 atorvastatin 40 mg tablet 40 mg PO HS 06/09/21 11/06/21 07/09/21 17:00 clonidine HCl 0.1 mg tablet 0.1 mg PO BID 06/09/21 11/06/21 07/09/21 17:00 dulaglutide 0.75 mg/0.5 mL 0.75 mg subcut WK 06/09/21 11/06/21 06/28/21 07:00 subcutaneous pen injector (Trulicity) hydrochlorothiazide 25 mg tablet 25 mg PO QAM 06/09/21 11/06/21 07/09/21 07:00 losartan 100 mg tablet 100 mg PO QAM 06/09/21 11/06/21 07/09/21 07:00 metformin 500 mg tablet 500 mg PO BID 06/09/21 11/06/21 07/09/21 17:00 aspirin 81 mg tablet,delayed 81 mg PO BID #90 tabs 07/08/21 11/06/21 07/09/21 07:00 release (Adult Aspirin Regimen) amoxicillin 500 mg tablet 2,000 mg PO ONCE #4 tabs 11/05/21 11/06/21 Unknown psyllium husk 3.4 gram/5.4 gram 1 tbsp PO QAM 11/06/21 11/06/21 Unknown oral powder (Metamucil) Past Medical History Medical History CKD (chronic kidney disease) Diabetes Elevated cholesterol Hypertension Liver disease Hepatitis A 50+ years ago (water source) No current liver issues per patient Lumbar spondylosis Exercise / Class Metabolic Activity II 4-5 Yardwork/Stairs/Walk up hill (one FS (no CP, no SOB)) Past Family History Family History Mother Diabetes Other Breast cancer Coronary heart disease No family history of adverse response to anesthesia Past Surgical History Surgical History H/O breast surgery r/t polymastia (55+years ago) H/O knee surgery right knee reconstruction with FB removal (bone chip) (1969's) H/O repair of rotator cuff right H/O total hip arthroplasty right ALVARO (07/10/21): SAB at L3/4 x2 attempts (see anesthesia record for further details). No issues noted per post-op anesthesia progress note. H/O: hysterectomy DEE with BSO History of appendectomy History of cataract surgery bilateral History of detached retina repair left Past Anesthesia History No Hx of Anesthesia Complications and No Family Hx of Anesthesia Complications History of PONV No Hx of PONV and No Hx of Motion Sickness Social History Smoking Status: Never smoker Do You Dip or Chew Tobacco: No Hx Alcohol Use: No Hx Substance Use: No Review of Systems Patient denies chest pain, shortness of breath, dyspnea on exertion, fever, chills, cough, wheezing, palpitations. Physical Exam Vital Signs VITALS BP 116/69 P 69 TEMP 97.9 SP02 97%RA RESP 16 PHYSICAL Full cervical extension range of motion. Full TMJ range of motion. TMD 4 finger breaths Mallampati Score 3 Dentition: intact, lower left bridge Lungs: clear throughout to auscultation Cardiac: regular rate and rhythm, no murmurs noted Spine: normal Carotid arteries: negative bruit Extremities: no edema Lab Results Anesthesia Preop Results Results Anesthesia Widget: WBC 7.87 K/ul (4.8-10.8) 11/11/21 Hgb 13.6 g/dl (12.0-16.0) 11/11/21 Hct 41.4 % (34.1-44.9) 11/11/21 Plt 284 K/uL (130-400) 11/11/21 Na 139 mmol/L (136-145) 11/11/21 K 3.1 mmol/L (3.5-5.1) L 11/11/21 Cl 101 mmol/L (98-107) 11/11/21 CO2 28 mmol/L (21-32) 11/11/21 BUN 24 mg/dl (6-23) H 11/11/21 Creat 0.99 mg/dl (0.6-1.2) 11/11/21 Glucose Level 149 mg/dl (70-99(Fasting)) H 11/11/21 PT 10.9 Seconds (9.0-12.0) 11/11/21 PTT 25.4 Seconds (21.0-31.0) 11/11/21 INR 1.0 (0.9-1.1) 11/11/21 HA1c 7.7 % (4.5-5.6) H 11/11/21 Blood Type A Positive 11/11/21 Antibody Screen NEGATIVE 11/11/21 Testing Laboratory Results Surgeon's office made aware of elevated hgba1c* Electrocardiogram Date: 06/11/21 Findings: + NSR @ (61bpm) Left anterior fascicular block. RBBB. When compared to EKG from December 07, 2013- no significant change was found per cardio. Mignon Plunkett ([facility]) PAC reviewed EKG with Dr. Bustamante prior to patient having right ALVARO (07/10/21) at [facility] without issue > he felt that since no change since 2013 per cardio, patient was okay to proceed as scheduled without further cardiac evaluation and/or testing- pt reports good functional status and denies cardiopulmonary complaints at PAT visit 11/11/21* Chest X-Ray Date: 06/11/21 Findings: + NAD
--- NOTE | 2021-12-05 12:34 | History and Physical Report ---
DATE OF ADMISSION: 12/11/2021 CHIEF COMPLAINT: Right knee pain. HISTORY OF PRESENT ILLNESS: The patient is an 81-year-old female now about 5 months out from a right hip replacement. Her hip is doing well. She continues to be bothered by knee pain. She has got gl obal pain in her knee, which is increased with weightbearing. Now that she is able to walk more becau se of her hip, her knee is bothering her more. She does wear a brace, which provides some support, b ut it still gives out intermittently. She has got sharp pains. She limps more as the day goes on. She would like to have her knee fixed now. PAST MEDICAL HISTORY: Significant for, 1. Diabetes. 2. Elevated cholesterol. PAST SURGICAL HISTORY: Includes, 1. Appendectomy. 2. Hysterectomy. 3. Right knee surgery. 4. Shoulder surgery. 5. Right hip replacement done on 07/10/2021. 6. Cataract surgery. 7. Retina surgery. 8. Breast surgery. 9. Tonsillectomy. ALLERGIES: None. CURRENT MEDICATIONS: Include, 1. Tylenol. 2. Amlodipine. 3. Aspirin. 4. Atorvastatin. 5. Clonidine. 6. Trulicity. 7. Hydrochlorothiazide. 8. Losartan. 9. Metformin. 10. Ondansetron. 11. Tramadol. SOCIAL HISTORY: An 81-year-old female. She does not smoke. She lives alone. Went to [facility] ast time. FAMILY HISTORY: Noncontributory. REVIEW OF SYSTEMS: Significant for diabetes. Her potassium was low, but this has been corrected and she is cleared for surgery. No history of DVT or PE. No known bleeding problems. PHYSICAL EXAMINATION: GENERAL: Shows a pleasant, elderly female. Looks to be in good health. HEENT: Benign. NECK: Supple. No lymphadenopathy. LUNGS: Clear to auscultation. HEART: Regular rate and rhythm. ABDOMEN: Soft, nontender, nondistended. EXTREMITIES: Grossly neurovascularly intact except as follows: Examination of the right leg reveals the patient walks with a slightly antalgic gait. She walks with her knee slightly bent. Her hip in cision is well-healed. She has got a small knee effusion. Bony hypertrophy medially. Range of israel on about 10 degrees short of full extension to 105 degrees of flexion. Fairly stiff knee. No pain w ith hip motion. X-RAYS: X-rays of the right knee reveal advanced right knee tricompartment DJD. She has got complet e loss of her medial and lateral joint space. She has got tibial and femoral subluxation. Osteophyt es in all 3 compartments. ASSESSMENT: An 81-year-old white female now about 5 months out from a right hip replacement with adv anced right knee degenerative joint disease. Her knee is now limiting her and she would like to have this fixed. She did well from her hip surgery. PLAN: We will take her to the operating room and do right total knee replacement. The risks and yanet efits of this procedure were explained to the patient and include but not limited to DVT, PE, , infection, neurological injury, vascular injury, bleeding problem, pain, limited range of motion, sti ffness, failure to relieve her symptoms, incomplete relief of symptoms, need for further surgery in t he future, etc. The patient understands and desires to proceed. Informed consent was obtained. She realized that knee surgery oftentimes is a bit more painful than the hip surgery. She went to [facility] last time and hoping to do the same. She will hold the metformin on the morning of surgery . Job ID: [id number]
[~2021-12-11 09:46] MED LIST changes: +BUPIVACAINE 0.25% 30 ML VIAL ONE; +BUPIVACAINE LIPOSOME/PF 266 MG, BUPIVACAINE/EPINEPHRINE 50 ML, SODIUM CHLORIDE 0.9% 30 ... INFIL SCH; +CeleBREX 200 MG CAP PO SCH; +EPINEPHrine INJ 1 MG/ML AMP ONE; -GABAPENTIN 300 MG CAP PO SCH; +METOCLOPRAMIDE HCL 10 MG TABLET PO SCH; +TRANEXAMIC ACID 1,000 MG **IV Intra-op IV SCH; -TRANEXAMIC ACID 1,000 MG **IV Pre-op IV SCH
[2021-12-11] MEDS ORDERED: fentaNYL citrate 100 MCG/2 ML VIAL ONE (10:34)
[2021-12-11] MEDS ORDERED: MIDAZOLAM HCL 1 MG/ML 2ML VIAL ONE ×2 (10:34→13:32)
--- NOTE | 2021-12-11 11:03 | History & Physical Bridge Note ---
Date of Service December 11, 2021 History & Physical Bridge Note I have examined the patient, reviewed the History & Physical and in the interval since the performance of the History & Physical I have noted the following changes of clinical significance: no changes noted
[2021-12-11] MEDS ORDERED: ATROPINE SULFATE 0.1 MG/ML 10ML SYR IV PRN (12:00)
[2021-12-11] MEDS ORDERED: ONDANSETRON INJ 2 MG/ML 2 ML VIAL IV PRN ×2 (12:00→17:09)
[2021-12-11] MEDS ORDERED: ePHEDrine sulfate 50 MG/ML AMP IV PRN (12:00)
[2021-12-11] MEDS ORDERED: HYDROmorphone INJ 2 MG/ML SYR/VIAL IV PRN (12:00)
[2021-12-11] MEDS ORDERED: fentaNYL citrate 100 MCG/2 ML VIAL IV PRN (12:00)
[2021-12-11] MEDS ORDERED: BUPIVACAINE/EPINEPHRINE 0.25% 1:200,000 30 ML VIAL ONE (13:00)
[2021-12-11] MEDS ORDERED: SODIUM CHLORIDE 0.9% PF 50 ML VIAL ONE (13:00)
[2021-12-11] MEDS ORDERED: BUPIVACAINE LIPOSOME 1.3% 266 MG/20 ML VIAL ONE (13:00)
[2021-12-11] MEDS ORDERED: ONDANSETRON INJ 2 MG/ML 2 ML VIAL ONE (13:28)
[2021-12-11] MEDS ORDERED: PROPOFOL IV EMULSION 10 MG/ML 20 ML VIAL IV ONE (13:28)
[2021-12-11] MEDS ORDERED: ePHEDrine sulfate 50 MG/ML SYR ONE (13:59)
[2021-12-11] MEDS ORDERED: GLUCOSE 40% GEL 15 GM TUBE PO PRN ×2 (15:21→17:30)
[2021-12-11] MEDS ORDERED: DEXTROSE 50% 50 ML SYRINGE IV PRN ×2 (15:21→17:30)
[2021-12-11] MEDS ORDERED: GLUCOSE 10 TAB/TUBE PO PRN ×2 (15:21→17:30)
[2021-12-11] MEDS ORDERED: CARBOHYDRATES FOR HYPOGLYCEMIA PO PRN ×2 (15:21→17:30)
[2021-12-11] MEDS ORDERED: GLUCAGON FOR INJ 1 MG VIAL SQ PRN (15:21)
--- NOTE | 2021-12-11 15:29 | Operative Report ---
PG Post Operative Report Pre & Post Diagnosis Operation Date: 12/11/21 12:30 Pre-Op Diagnosis: Right Knee Advanced Degenerative Joint Disease Post-Op Diagnosis: Right Knee Advanced Degenerative Joint Disease I identified the patient and participated in the time-out.: Yes Procedure Operation Date: 12/11/21 12:30 Actual Procedures p Right Total Knee Arthroplasty(Right) - Anupam Cabral MD Surgeon Anupam Cabral MD [employer] Lj Mccarthy PA-C Estimated Blood Loss 50 Findings Consistent with Post-Op Diagnosis Operative findings revealed advanced right knee tricompartment DJD. She had extensive grade 4 [id number] disease in all 3 compartments. She had tibiofemoral subluxation. That she had a chronic ACL and PCL deficient knee. Osteophytes in all 3 compartments. Specimens Right knee sent for pathology Anesthesia Type Spinal MAC Complications none Disposition Accompanied Patient To Recovery: No Indications Patient 81-year-old fairly active female has had a long history of right lower extremity problems. She developed arthritis in her hip and her knee. She had a right hip replaced about 4 months ago and is done remarkably well but limited by knee pain. She had extensive arthritis in her knee. She elected proceed with surgical management. Description of Procedure Operative implants consist of: 1 Biomet Vanguard size 70 right posterior stabilized femoral component. 2. Biomet size 71 tibial tray. 3. 12 mm posterior stabilized polyethylene insert. 4. 31 x 8 all Paller patella. The patient was taken the operating, identified, placed on the operating table supine position protectors were properly padded. IV antibiotics arrived by anesthesia team. A spinal anesthetic and been implemented holding area. Lucas catheter was placed in sterile fashion. A right thigh turn was then placed. The right lower extremities then prepped and draped in usual sterile fashion. The right leg was elevated and exsanguinated with the use of an Esmarch and the tourniquet was placed at 300 mmHg. An anterior approach of the right knee was then performed to longitudinal incision centered over the patella. Sharp dissection was carried through subcutaneous tissue down the extensor mechanism. A medial parapatellar arthrotomy incision was made. Some subperiosteal dissection was carried out medially. The fat pad was dissected beneath the p atella tendon. The lateral patellofemoral ligament was released. Patella subluxated laterally and the knee was flexed. The osteophytes taken off distal femur. There was no ACL or PCL still present. The tibia was subluxated anteriorly. The external tibial alignment jig was then placed in the interface of the tibia and adjusted 14 mm medially. The proximal tibial cut was made to remove about 2 to 3 mm of bone from the medial side. Some osteophytes taken off medial and posterior medially. The tibia sized to a size 71. We tried to maximize her coverage due to her osteopenia. Attention drawn the femur. The distal femur during the sharp drop with intramedullary canal was suction. A right 5 degree valgus cutting guide was placed. Distal femoral cutting block was pinned in place but distal femoral cut was made to take an additional 3 mm bone off distal femur. The femur was then sized to a size 70. We did downsize this slightly. The AP cutting block was pinned parallel to the epicondylar axis which was 3 degrees of external rotation. The anterior cut, anterior chamfer, posterior cut, posterior chamfer cuts were made. The box cutting guide was placed in a just slight laterally. The box cut was made. The knee was flexed. The remnants of the medial and lateral menisci were excised. The osteophytes were taken off the posterior aspect of the femur. A trial femoral component was placed. The tibial tray was pinned in maximum external rotation and the drill and stem punch were used to create defect in proximal tibia for the tibial tray. Knee was then trialed and the 12 mm insert fit most appropriately. Attention drawn the patella. Nupathe the patella was cleaned of all soft tissues. Patella thickness measured 23 mm in thickness was cut down to 14. Was sized to a size 31 patella. The lug holes were drilled for 31 patella. The lateral osteophyte was removed. Patella button was placed. Knee was taken through range of motion patella tracked nicely with no thumbs test. Attention drawn to place the permanent components. All trial components were removed. Bone plug was placed in the distal femur limit blood loss. Double batch Palacos G cement was mixed. A Biomet Vanguard size 70 right posterior stabilized femoral component, size 71 tibial tray, a 12 mm posterior stabilized polyethylene insert, and a 31 x 8 all Paller patella then cemented in place. The knee was brought out into full extension until cement hardened. Final cement check was then performed. Pericapsular tissues were injected with total 100 cc of combination of 20 cc of Exparel, 30 cc normal saline, 50 cc of quarter percent Marcaine with epinephrine. Patient did receive 1 g tranexamic acid but the tourniquet was let down for final turn time 59 minutes. Hemostasis reduced electrocautery. Extensor mechanism closed with a combination 1 PDS suture #1 Vicryl suture in [id number] fashion. Extensor mechanism checked found to be intact with subcutaneous tissue then closed 2 Dexon suture in a buried interrupted fashion skin was closed skin simon. Leg was then cleaned and dried a sterile dressing was Xeroform, 4 x 4's, sterile cast padding, Quintin bandage were applied. Patient then transferred to the recovery room in stable condition. The patient tolerated procedure well and there were no complications. Lj Lauren, my physician assistant education director, was present for the entire procedure. His assistance was required for proper patient positioning, prepping and draping, surgical exposure, perform the technical details of the operation, placement of the implants, closure of the incision site, placement of sterile bandage. I attest to the content of the Intraoperative Record and any orders documented therein. Any exceptions are noted below.
--- NOTE | 2021-12-11 15:38 | XRay Report ---
RIGHT KNEE 2 VIEWS History: Right total knee arthroplasty. Degenerative arthritis. Postop. FINDINGS: The patient is status post a right total knee arthroplasty. The hardware is intact. No frac ture or dislocation. Skin simon are in place. IMPRESSION: Right total knee arthroplasty. No evidence for hardware complication. ACT 112: Negative or not required by law. Electronically signed by: Lane Pringle M.D. 12/11/2021 3:37 PM
--- NOTE | 2021-12-11 15:44 | Anesthesiology Progress Note ---
Date of Service December 11, 2021 Anesthesia Post Procedure Vital Signs Vital Signs: Temp Pulse Resp BP Pulse Ox O2 Del Method O2 Flow Rate 12/11/21 15:40 97.5 F L 57 L 16 123/56 L 97 Room Air 12/11/21 15:30 63 16 122/63 97 Room Air 12/11/21 15:20 63 16 126/53 L 100 Oxymask 5 12/11/21 15:13 97.2 F L 62 16 123/50 L 100 Oxymask 5 12/11/21 10:26 97.3 F L 70 20 150/85 H 97 Room Air Transfer of Care Handoff Completed per policy Notes Mental Status: alert / awake / arousable and participated in evaluation Patient Amnestic to Procedure: Yes Nausea / Vomiting: adequately controlled Pain: adequately controlled Airway Patency, RR, SpO2: stable & adequate BP & HR: stable & adequate Hydration State: stable & adequate Neuraxial Anesthesia: was administered and sensory block is resolving Anesthetic Complications: no major complications apparent and Pt Satisfied with anesthetic care
[2021-12-11] MEDS ORDERED: MAGNESIUM HYDROXIDE SUSP 30 ML UDC PO PRN (17:09)
[2021-12-11] MEDS ORDERED: bisacodyL 10 MG SUPP PR PRN (17:09)
[2021-12-11] MEDS ORDERED: METOCLOPRAMIDE HCL INJ 5 MG/ML 2 ML VIAL IV PRN (17:09)
[2021-12-11] MEDS ORDERED: NALOXONE HCL 0.4 MG/1 ML VIAL/CARP IV PRN (17:09)
[2021-12-11] MEDS ORDERED: PHARMACY GLYCEMIC MGMT CONSULT PRN (17:09)
[2021-12-11] MEDS ORDERED: oxyCODONE HCL IR 5 MG TAB (IMMEDIATE RELEASE) PO PRN (17:09)
[2021-12-11] MEDS ORDERED: HYDROmorphone INJ 0.5 MG/0.5 ML SYR IV PRN (17:09)
[2021-12-11] MEDS ORDERED: ALUMINUM/MAGNESIUM SUSP 30 ML UDC PO PRN (17:09)
[2021-12-11] MEDS ORDERED: LANTUS PER UNIT CHARGE SQ ONE (17:30)
[2021-12-11] MEDS ORDERED: GLUCAGON FOR INJ 1 MG VIAL IM PRN (17:30)
[2021-12-11] MEDS: KETOROLAC TROMETHAMINE 15 MG/ML VIAL IV SCH ×2 (17:52→23:34)
[2021-12-11] MEDS: INSULIN ASPART PER UNIT SC SCH ×2 (17:54→21:24)
[2021-12-11] MEDS: ASCORBIC ACID 500 MG TAB PO SCH (18:01)
[2021-12-11] MEDS: SODIUM CHLORIDE 0.9% 1000ML 1,000 ML IV SCH (18:33)
[2021-12-11] MEDS: ATORVASTATIN 40 MG TAB PO SCH (20:13)
[2021-12-11] MEDS: ASPIRIN 81 MG ECTAB PO SCH (20:13)
[2021-12-11] MEDS: DOCUSATE SODIUM 100 MG CAP PO SCH (20:15)
[2021-12-11] MEDS: SENNA 8.6 MG TAB PO SCH (20:15)
[2021-12-11] MEDS: cloNIDine HCL 0.1 MG TAB PO SCH (20:16)
--- NOTE | 2021-12-11 20:55 | Pharmacy Report ---
Pharmacy Glycemic Short Note 2 - Date of Service December 11, 2021 - Glycemic Short BSG Results (Last 24 hours): 12/11/21 12/11/21 12/11/21 10:19 15:19 17:37 POC Glucose 152 H 137 H 118 H 12/11/21 20:21 POC Glucose 103 H OUTPATIENT ANTIDIABETIC REGIMEN: * Metformin 500 mg PO BIDM * Trulicity 0.75 mg SC Tuesday HbA1c: 7.7% (11/11/21) ASSESSMENT: * SP is a 81 year old female POD #0 s/p right total knee arthroplasty * No intraoperative steroids given * Patient with history of T2DM, reasonably controlled (<8%) with metformin and Trulicity * Fasting BSG this morning of 152 mg/dL, postop BSG of 118 mg/dL * Will use prior inpatient data to guide initial dosing * Will give ~0.15-0.2 unit/kg dose of basal in light of elevated fasting BSG and A1c despite two agents + weight-based stress of 2.5 Novolog dosing PLAN FOR INPATIENT GLYCEMIC CONTROL: * Hold outpatient oral diabetes medications * Basal insulin * [id number] units SC x 1 * Reassess in AM * Bolus insulin * NovoLog per scale ACHS or Q6hrs while NPO * Goal Range: Low 110 mg/dL - High 140 mg/dL * Correction Factor: 35 mg/dL/unit * Nutritional / Prandial insulin per carb ratio of 1 unit per 15 grams CHO consumed
[2021-12-11] MEDS ORDERED: TRANEXAMIC ACID / 0.7% NACL 1,000 MG/100 ML BAG IV SCH (21:30)
[2021-12-11] MEDS: ACETAMINOPHEN 500 MG TAB PO SCH (21:52)
[2021-12-11] MEDS: ceFAZolin 1000MG 1,000 MG/7.5 ML SYR IV SCH (21:52)
[2021-12-12] MEDS: SODIUM CHLORIDE 0.9% 1000ML 1,000 ML IV SCH (05:12)
[2021-12-12] MEDS: ceFAZolin 1000MG 1,000 MG/7.5 ML SYR IV SCH (05:38)
[2021-12-12] MEDS: ACETAMINOPHEN 500 MG TAB PO SCH ×3 (05:38→22:06)
[2021-12-12] MEDS: KETOROLAC TROMETHAMINE 15 MG/ML VIAL IV SCH ×4 (05:39→23:06)
[2021-12-12 06:45] LABS: Hematocrit (blood only) 33.8 % (34.1-44.9); Hemoglobin 11.1 g/dl (12.0-16.0); Mean Corpuscular Hemoglobin 30.1 pg (25.0-34.0); Mean Corpuscular Hgb Conc 32.8 g/dL (32.0-36.0); Mean Corpuscular Volume 91.6 fL (80.0-100.0); Mean Platelet Volume 10.8 fL (9.4-12.3); Platelet Count 242 K/uL (130-400); RDW Coefficient of Variation 13.5 % (11.5-14.5); RDW Standard Deviation 45.5 fL (36.4-46.3); Red Blood Count 3.69 M/uL (3.93-5.22); White Blood Count 10.36 K/ul (4.8-10.8)
[2021-12-12 07:11] LABS: BUN Creatinine Ratio 24.5 (10-20); Calcium 9.2 mg/dl (8.5-10.1); Creatinine Clr Calc Pharmacy 41.7 ml/min; Est GFR (African American) 59.7 ml/min; Est GFR (Non-African American) 51.5 ml/min
[2021-12-12] MEDS: ASPIRIN 81 MG ECTAB PO SCH ×2 (08:46→20:19)
[2021-12-12] MEDS: cloNIDine HCL 0.1 MG TAB PO SCH ×2 (08:46→20:20)
[2021-12-12] MEDS: DOCUSATE SODIUM 100 MG CAP PO SCH ×2 (08:46→20:19)
[2021-12-12] MEDS: hydroCHLOROthiazide 25 MG TAB PO SCH (08:52)
[2021-12-12] MEDS: LOSARTAN POTASSIUM 50 MG TAB PO SCH (08:53)
[2021-12-12] MEDS: amLODIPine BESYLATE 5 MG TAB PO SCH (08:53)
[2021-12-12] MEDS: PSYLLIUM or GUAR GUM FIBER POWDER PACKET PO SCH (08:53)
[2021-12-12] MEDS: MULTIVITAMIN TAB PO SCH (08:53)
[2021-12-12] MEDS: ASCORBIC ACID 500 MG TAB PO SCH ×2 (08:53→17:53)
[2021-12-12] MEDS: INSULIN ASPART PER UNIT SC SCH ×4 (09:00→20:48)
--- NOTE | 2021-12-12 09:21 | Progress Notes ---
DATE OF SERVICE: 12/12/2021. SUBJECTIVE: An 81-year-old white female postoperative day 1 from a right knee replacement. She is d oing quite well. She is sitting up in bed and eating breakfast and looks comfortable. She denies an y significant pain. No chest pain or shortness of breath. Not feeling dizzy or lightheaded. OBJECTIVE: VITAL SIGNS: Temperature is 36.8. Vital signs are stable. GENERAL: Pleasant, elderly, frail female. She is sitting up at her bedside chair, eating breakfast and looks comfortable. LUNGS: Clear to auscultation. HEART: Has a regular rate and rhythm. ABDOMEN: Soft, nontender, nondistended. EXTREMITIES: Grossly neurovascularly intact except as follows. Examination of the right knee reveals dressing to be clean, dry and intact. She can dorsiflex and pl antarflex her foot appropriately. She is neurologically intact. LABORATORY DATA: Hemoglobin 11.1. Hematocrit 33.8. Electrolytes are stable. ASSESSMENT: An 81-year-old white female postoperative day 1 from right knee replacement, doing well. Pain is controlled. She is neurologically intact. PLAN: 1. DVT prophylaxis includes thigh-high TEDs, SCDs, and aspirin twice a day. 2. PT, OT, weightbear as tolerated. Right total knee protocol. 3. Pain control, doing well with current pain regimen. Really denies much pain. 4. Disposition: She is planning to be discharged to [place] for rehabilitation stay similar to her hip replacement. We are waiting just acceptance and approval. Job ID: [id number]
[2021-12-12] MEDS: metFORMIN HCL 500 MG TAB PO SCH ×2 (09:35→17:53)
[2021-12-12] MEDS: ATORVASTATIN 40 MG TAB PO SCH (20:19)
[2021-12-12] MEDS: SENNA 8.6 MG TAB PO SCH (20:20)
[2021-12-13] MEDS: ACETAMINOPHEN 500 MG TAB PO SCH ×3 (05:40→21:18)
[2021-12-13] MEDS: KETOROLAC TROMETHAMINE 15 MG/ML VIAL IV SCH ×2 (05:40→12:51)
[2021-12-13] MEDS: cloNIDine HCL 0.1 MG TAB PO SCH ×2 (08:00→20:39)
[2021-12-13] MEDS: PSYLLIUM or GUAR GUM FIBER POWDER PACKET PO SCH (08:00)
[2021-12-13] MEDS: amLODIPine BESYLATE 5 MG TAB PO SCH (08:00)
[2021-12-13] MEDS: ASPIRIN 81 MG ECTAB PO SCH ×2 (08:00→20:38)
[2021-12-13] MEDS: LOSARTAN POTASSIUM 50 MG TAB PO SCH (08:00)
[2021-12-13] MEDS: DOCUSATE SODIUM 100 MG CAP PO SCH ×2 (08:00→20:38)
[2021-12-13] MEDS: MULTIVITAMIN TAB PO SCH (08:00)
[2021-12-13] MEDS: hydroCHLOROthiazide 25 MG TAB PO SCH (08:01)
[2021-12-13] MEDS: ASCORBIC ACID 500 MG TAB PO SCH ×2 (08:01→17:48)
[2021-12-13] MEDS: metFORMIN HCL 500 MG TAB PO SCH ×2 (08:44→17:48)
[2021-12-13] MEDS: INSULIN ASPART PER UNIT SC SCH ×4 (08:47→21:17)
--- NOTE | 2021-12-13 09:25 | Progress Notes ---
DATE OF SERVICE: 12/13/2021. SUBJECTIVE: An 81-year-old white female postop day 2 from a right knee replacement. She is doing we ll. Pain is controlled. Really does not report much pain. Just waiting for placement. No chest pa in or shortness of breath. OBJECTIVE: VITAL SIGNS: Temperature 36.9. Vital signs are stable. GENERAL: Physical examination reveals a pleasant, elderly female, sitting up in bed and eating break fast. She looks comfortable. EXTREMITIES: Examination of the right leg reveals the dressing to be clean, dry and intact. She can do a straight leg raise. She can dorsiflex and plantarflex her foot appropriately. She has got mod erate swelling. ASSESSMENT: An 81-year-old female postop day 2 from a right knee replacement, doing pretty well. Pa in is controlled. She is neurologically intact. Just waiting for placement. PLAN: 1. DVT prophylaxis includes thigh-high TEDs, SCDs, and aspirin twice a day. 2. PT, OT, weightbear as tolerated. Right total knee protocol. 3. Pain control, doing well with current pain regimen. 4. Disposition, just waiting for placement. She is going to go to [place]. We will need [facility] approval and hopefully that will happen on Tuesday. Job ID: [id number]
[2021-12-13] MEDS: ATORVASTATIN 40 MG TAB PO SCH (20:38)
[2021-12-13] MEDS: SENNA 8.6 MG TAB PO SCH (20:39)
[2021-12-14] MEDS: ACETAMINOPHEN 500 MG TAB PO SCH ×3 (05:28→21:33)
[2021-12-14] MEDS: INSULIN ASPART PER UNIT SC SCH ×4 (08:53→21:46)
[2021-12-14] MEDS: amLODIPine BESYLATE 5 MG TAB PO SCH (08:58)
[2021-12-14] MEDS: PSYLLIUM or GUAR GUM FIBER POWDER PACKET PO SCH (08:59)
[2021-12-14] MEDS: hydroCHLOROthiazide 25 MG TAB PO SCH (08:59)
[2021-12-14] MEDS: ASCORBIC ACID 500 MG TAB PO SCH ×2 (08:59→17:55)
[2021-12-14] MEDS: MULTIVITAMIN TAB PO SCH (08:59)
[2021-12-14] MEDS: DOCUSATE SODIUM 100 MG CAP PO SCH ×2 (08:59→21:34)
[2021-12-14] MEDS: LOSARTAN POTASSIUM 50 MG TAB PO SCH (08:59)
[2021-12-14] MEDS: cloNIDine HCL 0.1 MG TAB PO SCH ×2 (08:59→21:34)
[2021-12-14] MEDS: ASPIRIN 81 MG ECTAB PO SCH ×2 (08:59→21:35)
[2021-12-14] MEDS: metFORMIN HCL 500 MG TAB PO SCH ×2 (09:00→17:54)
--- NOTE | 2021-12-14 12:01 | Pharmacy Report ---
Pharmacy Glycemic Short Note 2 - Date of Service December 14, 2021 - Glycemic Short BSG Results (Last 24 hours): 12/13/21 12/13/21 12/13/21 12:12 17:26 20:58 POC Glucose 148 H 165 H 187 H 12/14/21 08:19 POC Glucose 150 H OUTPATIENT ANTIDIABETIC REGIMEN: * Metformin 500 mg PO BIDM * Trulicity 0.75 mg SC Tuesday HbA1c: 7.7% (11/11/21) ASSESSMENT: * Patient's BSGs yesterday were [phone] mg/dL. Patient received 12 units of bolus insulin. Home metformin restarted 12/12/21. * Fasting today was 150 mg/dL. * BSGs were stable but slightly elevated. Tighten Novolog. * Continue metformin. BACKGROUND * SP is a 81 year old female POD #0 s/p right total knee arthroplasty * No intraoperative steroids given * Patient with history of T2DM, reasonably controlled (<8%) with metformin and Trulicity * Fasting BSG this morning of 152 mg/dL, postop BSG of 118 mg/dL * Will use prior inpatient data to guide initial dosing * Will give ~0.15-0.2 unit/kg dose of basal in light of elevated fasting BSG and A1c despite two agents + weight-based stress of 2.5 Novolog dosing PLAN FOR INPATIENT GLYCEMIC CONTROL: * Hold outpatient oral diabetes medications * Basal insulin * N/A * Bolus insulin * NovoLog per scale ACHS or Q6hrs while NPO * Goal Range: Low 110 mg/dL - High 140 mg/dL * Correction Factor: 30 mg/dL/unit * Nutritional / Prandial insulin per carb ratio of 1 unit per 9 grams CHO consumed
[2021-12-14 15:12] VITALS: TEMP 98.2
--- NOTE | 2021-12-14 17:40 | Progress Notes ---
DATE OF SERVICE: 12/14/2021. SUBJECTIVE: An 81-year-old female postop day 3 from a right total knee replacement. She is doing we ll. Really not having much pain. She is just waiting for placement. She says she is "bored." OBJECTIVE: VITAL SIGNS: Temperature 36.8. Vital signs are stable. PHYSICAL EXAMINATION: GENERAL: Shows a pleasant, elderly female, sitting up in bed, looks completely comfortable. She is awake, alert and oriented. EXTREMITIES: Examination of the right leg reveals the leg to be well aligned. Dressing is clean, dr y and intact. She can dorsiflex and plantarflex her foot appropriately. She can do a good straight leg raise. ASSESSMENT: An 81-year-old white female postoperative day 3 from right knee replacement, doing well. Just waiting for placement. PLAN: 1. DVT prophylaxis includes thigh-high TEDs, SCDs, and aspirin twice a day. 2. PT, OT, weightbear as tolerated. Right total knee protocol. 3. Pain control, doing okay with current pain regimen. 4. Disposition: Just waiting for placement. She is medically stable and ready to go any time. Job ID: [id number]
[2021-12-14] MEDS: ATORVASTATIN 40 MG TAB PO SCH (21:34)
[2021-12-14] MEDS: SENNA 8.6 MG TAB PO SCH (21:34)
[2021-12-15] MEDS: ACETAMINOPHEN 500 MG TAB PO SCH (05:47)
[2021-12-15 07:47] VITALS: O2SAT 91
[2021-12-15] MEDS: metFORMIN HCL 500 MG TAB PO SCH (08:58)
[2021-12-15] MEDS: INSULIN ASPART PER UNIT SC SCH ×2 (08:58→12:29)
[2021-12-15] MEDS: LOSARTAN POTASSIUM 50 MG TAB PO SCH (09:01)
[2021-12-15] MEDS: ASPIRIN 81 MG ECTAB PO SCH (09:01)
[2021-12-15] MEDS: MULTIVITAMIN TAB PO SCH (09:01)
[2021-12-15] MEDS: amLODIPine BESYLATE 5 MG TAB PO SCH (09:01)
[2021-12-15] MEDS: cloNIDine HCL 0.1 MG TAB PO SCH (09:01)
[2021-12-15] MEDS: hydroCHLOROthiazide 25 MG TAB PO SCH (09:01)
[2021-12-15] MEDS: DOCUSATE SODIUM 100 MG CAP PO SCH (09:01)
[2021-12-15] MEDS: PSYLLIUM or GUAR GUM FIBER POWDER PACKET PO SCH (09:02)
[2021-12-15] MEDS: ASCORBIC ACID 500 MG TAB PO SCH (09:44)
--- NOTE | 2021-12-15 09:58 | Progress Notes ---
DATE OF SERVICE: 12/15/2021. SUBJECTIVE: An 81-year-old female now postop day 4 from right knee replacement. She is doing well. Really not much in the way of pain. She just has been waiting for placement. No chest pain or shor tness of breath. Not feeling dizzy or lightheaded. OBJECTIVE: VITAL SIGNS: Temperature 36.8. Vital signs are stable. PHYSICAL EXAMINATION: GENERAL: Shows a pleasant, elderly female. She is lying in bed, looks comfortable. EXTREMITIES: Examination of the right leg reveals the dressing to be clean, dry and intact. Leg is well aligned. She can do a good straight leg raise. She is neurologically intact. ASSESSMENT: An 81-year-old white female postoperative day 4 from right knee replacement, doing well. Just waiting for placement. She has decided that she wants to go home with home health as opposed to [place]. PLAN: 1. DVT prophylaxis includes thigh-high TEDs, SCDs, and aspirin twice a day. 2. PT, OT, weightbear as tolerated. Right total knee protocol. 3. Pain control, doing well with current pain regimen. 4. Disposition: Plan to discharge to home with home health after therapy today. Job ID: [id number]
[2021-12-15 10:18] VITALS: BP 159/67; PULSE 60
--- NOTE | 2021-12-17 08:08 | Discharge Summary ---
Date of Service December 17, 2021 Admission HPI (Per Admitting) History of Present Illness:The patient is an 81-year-old white female now 3- 1/2 months out from right hip replacement. Her hip is doing great. She continues to be bothered by knee pain. She walks okay, butany twisting or any type of abnormal activity creates a sharp pain in her knee and it tends to give out a bit. She wears a knee brace, which provides some support. She is now disabled by this knee pain and would like to have this fixed. No new medical problems. Principal Diagnosis Same as "Discharge Diagnosis" noted below under Discharge Instructions. Discharge Exam Gen: A pleasant elderly female. She looks to be in pretty good health. HEENT: Benign. Neck: Supple. No lymphadenopathy. Lungs: Clear to auscultat ion. Heart: Regular rate and rhythm. Abdomen: Soft, nontender, and nondistended. Extremities: Grossly neurovascularly intact except as follows:Examination of the right leg reveals the patient walks with slightly antalgic gait. She walks with her knee slightly bent. Examination of the hip reveals a well-healed incision. She has got no pain with hip motion. She is neurologically intact. Examination of the right knee reveals small knee effusion. She has got bony hypertrophy globally. Her range of motion is about 10 degrees short of full extensionto about 105 degrees of flexion. Pretty stiff knee. No particular pain with hip motion. Discharge Data Procedures Performed Operation Date: 12/11/21 12:30 Actual Procedures p Right Total Knee Arthroplasty(Right) - Anupam Cabral MD Ordered Studies 12/11/21 05:00 US - OR guided needle placemen Routine Hospital Course (1) Status post right knee replacement: Pt underwent elective R TKA on 12/[address] Cabral. No surgical complications or post operative complications. She remained admitted waiting for placement initially but was discharged home on 12/15 with home health. Plan PG Care Time/CCT Total # of Minutes Spent Total Time Spent with Patient: Total time spent is greater than 50% in coordination of care (as documented) at patient's floor/unit and/or counseling patient: Discharge Plan Discharge Items Patient Disposition: Home - Home Health Services Reason For Visit: Right knee Degenerative Joint Disease Discharge Diagnosis: Right Knee Replacement Activity: Per Instructions section Non-emergency contact: Surgeon Call non-emergency contact if: you have any medication questions Follow-up/Referrals: Brittani Mirza PA-C [Primary Care Provider] - Diet: Carb Consistent or DM2 Addtl Attending Provider Instructions: ACTIVITY RECOMMENDATIONS: Physical Therapy: * You will go to physical therapy three times each week for four to six weeks after your surgery in order to regain your knee range of motion and to retrain your knee to work properly. * It is just as important to make sure you are getting your knee perfectly straight as it is to regain your knee bend. * Taking a pain pill an hour before therapy can help you have a more productive and comfortable therapy session. Home Exercise: * You were shown a series of exercises (heel props, heel slides, etc.) in the hospital. Do these exercises three to four times each day including the exercises you were shown in physical therapy. Walking: * Get up and walk several times each day. For the first four weeks, try not to stand or walk for more than one hour at a time. If you do stand or walk for more than one hour, you will not hurt anything, but your knee and leg will likely swell. * As you feel comfortable, you may change from the walker or crutches to a cane and then to independent walking. MEDICATIONS: New Medicine: * You will likely be taking one or more of these medications: 1. Oxycodone - A quick and shorter-acting pain medication. Take one to two tablets every six hours to lessen your pain. 2. Aspirin - Thins your blood to lessen the chance of forming a blood clot. * The most common side effects of pain medicine and iron are nausea and constipation. If nausea or constipation is too much of a problem or if you have any questions about your new medicines or doses, call [facility] at . We will try to help you manage these issues. "VERY IMPORTANT TO READ AND REVIEW" Pain: * The immediate post-operative period after knee replacement surgery is often quite painful. * You are given a prescription for pain medicine. You should take it, as directed, when you need it, especially before physical therapy and before going to bed. Pain that interferes with sleep is very common and can last several months. * You will likely need pain medicine for the first four to six weeks. It will not stop all of the pain. The pain will lessen and as you feel better, you may change to milder pain medicine such as Tylenol. * The most common side effects of pain medicine are nausea and constipation, so don't take more than you need. SPECIAL CARE INSTRUCTIONS: TEDs/Elastic Stockings: * The white elastic stockings help limit swelling and prevent blood clots from forming in your legs. The more you wear them, the more they work. * Wear them for six weeks after knee replacement surgery and four weeks after partial knee replacement. Incision Site Care: * Remove dressing postoperative day 2 and then shower. Keep direct shower pressure off the incision site. * After showering, cover simon with dry gauze and change daily or more frequently if the dressing is getting saturated with drainage. * Use the FREDA stockings to hold dressing in place. DO NOT apply tape on the skin. * May completely stop using bandage if wound is dry and no drainage * Simon are removed between 2 and 3 weeks post-op. If your follow-up appointment is made before 2 weeks, please have your appointment re- scheduled. It is too early to remove the simon. Prevention of Infection: * Take antibiotics one hour before any dental cleaning, dental work, urological procedure, gastrointestinal procedure or any invasive surgery in order to prevent your new joint from getting infected. * You may get the antibiotics from the doctor performing the procedure or you may call our office at [phone] before and we will call in a prescription to the pharmacy of your choice. Things to Watch For: * Drainage from the incision site that occurs more than one week after your surgery. * Severely increased knee/leg pain or swelling. * Increased redness at the incision site. * Fever above 102 degrees Fahrenheit. * Unusual chest pain or shortness of breath. * Unusual pain or burning with urination. Call [facility] at [phone] with any of the above problems or if you have any questions about your medicines or recovery. FOLLOW UP VISIT: Make an appointment to see your doctor for approximately two weeks after surgery for a progress check and staple removal by calling the office at [phone]. Pending Studies at Discharge: No Stand-Alone Forms: [facility], Smoking Cessation Medications and MO Order Prescriptions: New acetaminophen [Tylenol Extra Strength] 500 mg Tablet 1,000 mg PO Q8 30 Days Qty: 180 0RF Rx Instructions: Take 3 times per day to lessen pain. oxycodone 5 mg Tablet 5 mg PO Q4H PRN (Reason: pain) Qty: 30 0RF Rx Instructions: Take as needed for Pain. Continued aspirin [Adult Aspirin Regimen] 81 mg tablet,delayed release (DR/EC) 81 mg PO BID Qty: 90 3RF Rx Instructions: Take to prevent blood clots. amoxicillin 500 mg tablet 2,000 mg PO ONCE Qty: 4 3RF Rx Instructions: 4 tabs 1 hour prior to procedure atorvastatin 40 mg Tablet 40 mg PO HS metformin 500 mg Tablet 500 mg PO BID clonidine HCl 0.1 mg Tablet 0.1 mg PO BID amlodipine 10 mg Tablet 10 mg PO QAM hydrochlorothiazide 25 mg Tablet 25 mg PO QAM losartan 100 mg Tablet 100 mg PO QAM Trulicity 0.75 mg/0.5 mL Pen Injector 0.75 mg SUBCUT WK Metamucil 3.4 gram/5.4 gram Powder 1 tbsp PO QAM Rx Instructions: mix into at least 8 oz of water or juice before administering Discontinued acetaminophen 500 mg Tablet 1,000 mg PO Q6H PRN (Reason: Pain) Discharge Orders: Discharge Order (Routine); Ordered 12/14/21 Ordered By: Anupam Durbin/Other Patient Handouts: Falls Prevent Adjust Living Space Admission Data Admit Date/Time: 12/12/21 12:04 Attending Provider: Anupam Cabral Admit Provider: Anupam Cabral Primary Care Provider: Brittani Mirza Other Providers: [facility],Home Health Other Interventions: Discharge Summary Assessment (RN) Last Done: 12/15/21 10:16
== END 2021-12-15 13:18 | disposition home health service (06) ==
LOC: 3W 09:46 → ASU 09:46
DX: M17.11 Unilateral primary osteoarthritis, right knee; Z79.84 Long term (current) use of oral hypoglycemic drugs; Z79.899 Other long term (current) drug therapy; E11.9 Type 2 diabetes mellitus without complications; E78.00 Pure hypercholesterolemia, unspecified; Z79.82 Long term (current) use of aspirin